=== PATIENT | female | born 1950 | race American Indian/Alaskan Native ===

== ENCOUNTER 2016-03-01 10:23 | Outpatient (CLI) | payer MEDICAID ==
--- NOTE | 2016-03-01 12:31 | XRay Report ---
LUMBOSACRAL SPINE, 5 VIEWS: HISTORY: Low back pain. FINDINGS: There is borderline bone mineralization. No evidence for compression deformity, bone lesion or malalignment. Mild multilevel degenerative disc disease and facet arthropathy are noted. The sacrum and SI joints are within normal limits. The oblique images demonstrate no evidence for pars defect or high-grade neural foraminal narrowing. IMPRESSION: Mild lumbar spondylosis. No acute process. Borderline osteopenia.
--- NOTE | 2016-03-02 09:43 | Mammography Report ---
BILATERAL MAMMOGRAM: FINDINGS: Baseline mammogram: The breasts are almost entirely fat (<25% glandular). No mass, distortion, suspicious calcification, or skin change is seen. CAD was utilized. IMPRESSION: Negative mammogram. There is no mammographic evidence of malignancy. RECOMMENDATION: Follow-up per ACS guidelines. BI-RADS CATEGORY: 1 = Negative ACR BI-RADS MAMMOGRAPHIC CODES: 0 = Needs additional imaging evaluation; 1 = Negative; 2 = Benign; 3 = Probably benign; 4 = Suspicious; 5 = Malignant; 6 = Known biopsy-proven malignancy COMMENT: 1. Dense breast tissue, i.e., adenosis, fibrocystic changes, etc., may obscure an underlying neoplasm. 2. Approximately 10% of cancers are not detected with mammography. 3. A negative mammography report should not delay biopsy if a clinically suspicious mass is present. COMMENT: Patient follow-up letters are generated in [employer].
== END 2016-03-01 10:24 | disposition home or self-care (01) ==
LOC: MAMMO 10:23
PROVIDERS: ATTEND Internal Medicine
DX: Z12.31 Encounter for screening mammogram for malignant neoplasm of breast (principal); M51.37 Other intervertebral disc degeneration, lumbosacral region; M47.896 Other spondylosis, lumbar region; M54.9 Dorsalgia, unspecified
CPT/HCPCS: 72110; G0202; 77067

== ENCOUNTER 2016-03-27 10:35 | Outpatient (CLI) | payer MEDICAID ==
--- NOTE | 2016-03-27 14:39 | Mammography Report ---
BONE DEXA:03/27/16 10:35:00 CLINICAL: Postmenopausal. No comparison. TECHNIQUE: Two site bone DEXA performed on an Hologic scanner. FINDINGS: The average BMD of the lumbar spine L1-L4 is 0.706g/cm squared with a T-score of -3.1 and a Z-score of -1.9. The average BMD of the left hip is 0.711g/cm squared with a T-score of -1.9 and a Z-score of Rivas 1.0. IMPRESSION: 1. WHO classification: Osteoporosis with high fracture risk based on lumbar spine measurements. 2. WHO classification: Osteopenia with increased fracture risk based on left hip measurements. RECOMMENDATION: Clinical correlation and routine screening. DEFINITIONS: BMD = Bone Mineral Density T-score = BMD related to mean peak bone mass of young adult (mean expressed in Standard Deviation) Z-score = Age matched BMD expressed in SD World Health Organization (WHO) Diagnostic Criteria Normal T-score > -1 SD Osteopenia T-score between -1 and -2.4 SD Osteoporosis T-score -2.5 SD or below NOTE: BMD is not the only risk factor for fracture. One should also consider factors such as the patient's age, risk of falling, previous osteoporotic fracture, family history of osteoporotic fractures, current smoker, and low body weight. Z-scores are not calculated if >80 years of age.
== END 2016-03-27 10:36 | disposition home or self-care (01) ==
LOC: MAMMO 10:35
PROVIDERS: ATTEND Internal Medicine
DX: Z13.820 Encounter for screening for osteoporosis (principal); M81.0 Age-related osteoporosis without current pathological fracture; M85.88 Other specified disorders of bone density and structure, other site; Z78.0 Asymptomatic menopausal state
CPT/HCPCS: 77080